=== PATIENT | male | born 1950 | race Caucasian/White ===

== ENCOUNTER → 2018-11-04 | Day surgery (SDC) | payer MEDICARE, BC ==
[~2018-11-04] MED LIST: Lidocaine 1% 20 ML MDV ONE
[2018-11-04 16:06] VITALS: BP 135/90
--- NOTE | 2018-11-05 08:23 | OR ---
DATE OF OPERATION: 11/04/2018 PREOPERATIVE DIAGNOSIS: BILATERAL VENOUS INSUFFICIENCY WITH PAINFUL VARICOSITIES. POSTOPERATIVE DIAGNOSIS: BILATERAL VENOUS INSUFFICIENCY WITH PAINFUL VARICOSITIES. SURGEON: Vishal Ruiz MD PROCEDURE: ENDOVENOUS ABLATION, BILATERAL GSVS. ANESTHESIA: Local with tumescent. COMPLICATIONS: None. SPECIMEN: None. FINDINGS: Successful FRANCISCO, bilateral GSVs. INDICATIONS: The patient has documented saphenofemoral insufficiency via ultrasound. He suffers from painful and complicated varicosities. He elects to proceed with endovenous ablation. DESCRIPTION OF PROCEDURE: The patient was brought to the operating room suite and the insufficient saphenous veins on each leg mapped via ultrasound and diagrammed on the overlying skin including the depth and diameter of the drain to be treated. Both limbs were prepped and draped in sterile fashion. The patient was placed in reverse Trendelenburg position and the right leg was isolated first. Local anesthesia was instilled at the access site. The greater saphenous vein was accessed at around the knee using ultrasound guidance and Seldinger technique. Guidewire was introduced through the needle after it was introduced into the vein. The needle was removed. A small incision was made with an 11-blade scalpel, and a 6-Yoruba sheath was inserted into the vein over the guidewire without any complication. Guidewire was removed. The sheath was held in place by skin tension. The sheath was flushed. The radiofrequency probe was placed into the vein and positioned approximately 2 cm distal to the saphenofemoral junction using ultrasound guidance. Once probe position was verified via ultrasound, tumescent anesthesia was infiltrated precisely into the perivenous compartment along the entire length of the vein from the access site to the saphenofemoral junction. The patient was placed back in Trendelenburg position to exsanguinate the superficial system, and after probe, position was confirmed again with ultrasound, and with direct external compression along the length of the heating element, radiofrequency energy was applied. The vein was ablated heating a 7-cm segment and indexing the catheter forward 6.5 cm until treatment length complete. Device temperature was maintained at 120 degrees Celsius with an initial power level of 40 blankenship dropping below 20. Total treatment time on the right lower extremity was 2 minutes with 6 radiofrequency cycles and a total of 600 mL of tumescent anesthesia used. The catheter and sheath were withdrawn. Ultrasound confirmed successful treatment. Hemostasis was achieved with direct pressure. The patient was then placed back in reverse Trendelenburg position and the left leg was isolated. The access site was anesthetized with 1% lidocaine. The vein was accessed using ultrasound guidance and the Seldinger technique with guidewire introduced through the needle. The needle was removed. An 11-blade scalpel was used for a small stab incision at the level of the knee. We were able to access the vein with a 6-Yoruba sheath over the guidewire without any complication. The guidewire was removed and the sheath was flushed. The radiofrequency probe was placed through the sheath, into the vein, and positioned 1.85 cm distal to the saphenofemoral junction under ultrasound guidance. Once probe position was verified, tumescent anesthesia was infiltrated precisely into the perivenous compartment, achieving a halo effect from the level of the access site to the saphenofemoral junction. The patient was placed back in Trendelenburg position to exsanguinate the superficial system. Radiofrequency probe position again confirmed with ultrasound and with direct external compression along the length of the heating element, radiofrequency energy was applied. The vein was segmentally ablated heating a 7- cm segment and indexing the catheter forward 6.5 cm until treatment length complete. Device temperature was maintained at 120 degrees Celsius with an initial power level of 40 blankenship dropping to below 20. Total treatment time was 2 minutes with a total of 6 radiofrequency cycles and total of 350 mL of tumescent anesthesia was used. Ultrasound confirmed successful treatment. The catheter and sheath were withdrawn and hemostasis was achieved with direct pressure. Both legs were wrapped with compression stockings from the compression with Alex wraps from the level of the foot to the groin without any complication. The patient was stable in the recovery room. BERNIE/MURTAZA /[id number]
== END ==
LOC: CC.SDS 10:13
PROVIDERS: ATTEND Family Medicine
DX: I83.813 Varicose veins of bilateral lower extremities with pain (principal); I87.2 Venous insufficiency (chronic) (peripheral)